=== PATIENT | male | born 1980 | race Caucasian/White ===

== ENCOUNTER 2019-10-29 07:25 | Inpatient (IN) | payer MEDICAID ==
[~2019-10-29] VITALS: Ht 160 cm; Wt 72.6 kg
[2019-10-29] MEDS ORDERED: QUET25TA3 (07:40)
[2019-10-29] MEDS ORDERED: AMOXICILLIN (07:40)
[2019-10-29] MEDS ORDERED: SERT50TA14 (07:40)
[2019-10-29] MEDS ORDERED: ASPI81TA31 PO (07:40)
[2019-10-29] MEDS ORDERED: FURO20TA90 (07:40)
[2019-10-29] MEDS ORDERED: COREG (07:40)
[2019-10-29] MEDS ORDERED: LIPITOR (07:40)
[2019-10-29] MEDS ORDERED: METFORMIN (07:40)
[2019-10-29] MEDS ORDERED: IV NS 1000 ML 1,000 ML IV ONE (07:46)
[2019-10-29] MEDS ORDERED: NEOMY/BACITRA/POLYMYXIN B OINT UD PACKET TP ONE ×2 (07:56→08:00)
[2019-10-29 08:33] LABS: BASOPHILS # (AUTO) 0.1 K/uL (0.0-8.0); BASOPHILS % (AUTO) 1.2 % (0.0-2.0); EOSINOPHILS % (AUTO) 0.5 % (0.0-7.0); HEMATOCRIT 38.3 % (36.7-47.1); LYMPHOCYTES # (AUTO) 1.8 K/uL (20.0-40.0); LYMPHOCYTES % (AUTO) 16.9 % (20.5-51.5); MEAN CORPUSCULAR HEMOGLOBIN 29.5 uug (23.8-33.4); MEAN CORPUSCULAR HGB CONC 34 g/dL (32.5-36.3); MEAN CORPUSCULAR VOLUME 87.2 fL (73.0-96.2); MONOCYTES # (AUTO) 0.8 K/uL (2.0-10.0); MONOCYTES % (AUTO) 7.3 % (0.0-11.0); NEUTROPHILS # (AUTO) 7.8 K/uL (1.8-8.9); NEUTROPHILS % (AUTO) 74.1 % (38.5-71.5); PLATELET COUNT (AUTO) 218 K/uL (152-348); RED BLOOD CELL COUNT(AUTO) 4.39 MIL/uL (4.06-5.63); WHITE BLOOD COUNT (AUTO) 10.5 K/uL (3.6-10.2)
[2019-10-29 08:51] LABS: CREATININE 0.8 mg/dL (0.6-1.3); POTASSIUM 4.2 mmol/L (3.5-5.1)
[2019-10-29] MEDS ORDERED: ASPIRIN 325 MG TABLET ONE (08:55)
[2019-10-29] MEDS ORDERED: ASPIRIN 325 MG TABLET PO ONE (09:00)
[2019-10-29 09:08] LABS: BILIRUBIN,TOTAL 0.5 mg/dL (0.2-1.0); TOTAL PROTEIN, SERUM 6.7 g/dL (6.4-8.2)
[2019-10-29 09:18] LABS: ETHANOL < 3 MG/DL (0-0)
--- NOTE | 2019-10-29 09:31 | NUR ---
Extra warm blankets are on. Urinal@bedside, pending urine specimen.
--- NOTE | 2019-10-29 10:02 | NUR ---
Patient voided on himself and gurney instead of using the urinal. Reoriented patient re: urinal please for urine sample, callbutton use, and reminded patient not to pull on his cables, therapeutic tubings/wires. Bedsheet changed, new gown on.
[2019-10-29] MEDS ORDERED: IOHEXOL 350 100 ML INFUS..BTL ONE (10:09)
[2019-10-29] MEDS ORDERED: IV NORMAL SALINE 250 ML IV ONE (10:09)
[2019-10-29] MEDS ORDERED: SWABABLE VALVE TRANSFER SET EA MC ONE (10:09)
[2019-10-29] MEDS ORDERED: MORPHINE SULFATE 2 MG/1 ML DISP.SYRIN ONE (10:35)
[2019-10-29] MEDS ORDERED: ONDANSETRON 4 MG/2 ML VIAL ONE (10:35)
[2019-10-29] MEDS ORDERED: ENOXAPARIN SODIUM 80 MG/0.8 ML DISP.SYRIN SQ ONE ×2 (10:35→11:00)
[2019-10-29] MEDS ORDERED: MORPHINE SULFATE 2 MG/1 ML DISP.SYRIN IV ONE (11:00)
[2019-10-29] MEDS ORDERED: ONDANSETRON 4 MG/2 ML VIAL IV ONE (11:00)
--- NOTE | 2019-10-29 11:05 | NUR ---
Patient is resting comfortably on gurney with eyes closed, pending callback from [facility] hospitalist.
--- NOTE | 2019-10-29 11:31 | NUR ---
SURY Arita@bedside & evaluating patient in ER bed 3.
--- NOTE | 2019-10-29 12:02 | NUR ---
Patient was unable to move from gurney to wheelchair, c/o severe pains "all-over", loud moaning heard. Patient was assisted back to supine position with 2 person assist. Comfort and safety measures maintained.
[2019-10-29 12:03] LABS: *BILIRUBIN,URIN NEGATIVE (NEGATIVE); *BLOOD, URINE NEGATIVE (NEGATIVE); *CLARITY,URINE SLIGHTLY CLOUDY (CLEAR); *COLOR,URINE YELLOW (YELLOW); *KETONES,URINE TRACE (NEGATIVE); *UROBILINOGEN,URINE 0.2 E.U./dl (NORMAL); LEUKOCYTE ESTERASE ,URINE TRACE (NEGATIVE); NITRITE, URINE NEGATIVE (NEGATIVE); PH,URINE 5.5 (5.0-8.0)
[2019-10-29 12:08] LABS: UGLUCOSE 3+ (NEGATIVE)
[2019-10-29 12:19] LABS: *AMPHETAMINE, URINE NEGATIVE (NEGATIVE); *BARBITURATE, URINE NEGATIVE (NEGATIVE); *CANNABINOID, URINE NEGATIVE (NEGATIVE); *COCCAINE, URINE NEGATIVE (NEGATIVE); *OPIATE, URINE POSITIVE (NEGATIVE); *PHENCYCLIDINE SCREEN,URINE NEGATIVE (NEGATIVE)
--- NOTE | 2019-10-29 12:30 | NUR ---
Received pt. resting in bed. when asked name, , pt. states he does not know. Made 2 attempts pt. did not know answer twice. pt. states he does not know what month it is, who is the president, or simple math equation. pt denies sob/ difficulty breathing; however pt. has non productive cough. Pt. denies pain/ discomfort. IV in R hand 20 gauge intact patent saline lock. safety measures in place. call light within reach. will continue to monitor pt.
[2019-10-29 12:52] VITALS: BP 137/103
[2019-10-29] MEDS ORDERED: ZOLPIDEM 5 MG TABLET PO PRN (13:15)
[2019-10-29] MEDS ORDERED: ONDANSETRON 4 MG/2 ML VIAL IV PRN (13:15)
[2019-10-29] MEDS ORDERED: DEXTROSE 50% 50 ML DISP.SYRIN IV PRN (13:15)
[2019-10-29] MEDS ORDERED: MAGNESIUM HYDROXIDE 30 ML LIQUID UDC PO PRN (13:15)
[2019-10-29] MEDS ORDERED: ACETAMINOPHEN 325 MG TABLET PO PRN (13:15)
--- NOTE | 2019-10-29 14:00 | NUR ---
pt. has bizarre behavior. Pt. pulled out cords from back of bed and put gown in toilet. Pt. wandering around room with weak balance holding on to furniture while standing. Instructed pt. to stay in bed and set bed alarm on. Re oriented pt. to hospital. Spoke to Krysta Arita who will put in psych consult.
[2019-10-29 15:23] VITALS: BP 99/68
--- NOTE | 2019-10-29 15:52 | NUR ---
pt. getting out of bed and pulling of monitor leads. Taped monitor leads to pt chest. Found pt. sitting in bed with legs up and over side rails. Order given for 1:1 sitter for safety.
[2019-10-29] MEDS: BLOOD SUGAR DIAGNOSTIC 1 EACH STRIP VI SCH ×2 (16:30→20:37)
[2019-10-29 17:12] LABS: BACTERIA,URINE FEW /HPF (NONE SEEN); RBC,URINE NONE SEEN /HPF (0-3); SQUAMOUS EPITHELIAL CELL,UR FEW /HPF (NONE SEEN); WBC,URINE 0-3 /HPF (0-3)
[2019-10-29 17:13] LABS: YEAST,URINE BUDDING YEAST /HPF (NONE SEEN)
[2019-10-29] MEDS: IV NS 1000 ML 1,000 ML IV PRN (18:36)
[2019-10-29] MEDS: INSULIN REGULAR, HUMAN 300 UNIT/3 ML VIAL SQ PRN (18:52)
--- NOTE | 2019-10-29 19:30 | NUR ---
Received patient lying in bed. AAOx1 to name. No signs or symptoms of acute distress at this time. Patient is on RA and denies SOB or chest pain. electronic device monitor is on. Left wrist IV patent and infusing ordered fluids. 1:1 Sitter at bedside for safety. Bed low and in locked position. Safety measures in place and will continue to monitor.
[2019-10-29 20:00] VITALS: BP 107/63
[2019-10-29] MEDS: HYDROCODONE/APAP 5-325MG TABLET PO PRN (21:17)
--- NOTE | 2019-10-29 22:00 | NUR ---
Patient began moaning loudly and hitting their chest verbalizing "Just kill me please". Patient stated they hear voices. Notified Krysta Arita DNP and placed one time order for Seroquel 25mg PO. Pt to follow up with psych consult in AM.
[2019-10-29] MEDS ORDERED: QUETIAPINE FUMARATE 25 MG TABLET PO ONE (22:30)
[2019-10-30] VITALS: BP 112/60
--- NOTE | 2019-10-30 00:30 | NUR ---
pt continuously hitting self and was unable to de redirected. Pt became anxious and agitated. HR fluctuated between 130-140 on the playground monitor. Notified Ruth of pt behavior and instructed to place an order for 1mg Ativan PO. Will continue to monitor.
[2019-10-30] MEDS ORDERED: LORAZEPAM 1 MG TABLET PO ONE (00:45)
--- NOTE | 2019-10-30 03:00 | NUR ---
Pt is calm and sleeping in bed. HR WNL. Sitter at bedside. Will continue to monitor.
[2019-10-30 05:00] VITALS: BP 114/81
[2019-10-30] MEDS: BLOOD SUGAR DIAGNOSTIC 1 EACH STRIP VI SCH ×4 (06:35→21:03)
[2019-10-30 06:40] LABS: BASOPHILS % (AUTO) 0.7 % (0.0-2.0); EOSINOPHILS # (AUTO) 0.1 K/uL (0.0-0.7); EOSINOPHILS % (AUTO) 1.9 % (0.0-7.0); HEMATOCRIT 34.6 % (36.7-47.1); HEMOGLOBIN 11.7 g/dL (12.5-16.3); LYMPHOCYTES # (AUTO) 2.1 K/uL (20.0-40.0); LYMPHOCYTES % (AUTO) 33.5 % (20.5-51.5); MEAN CORPUSCULAR HEMOGLOBIN 29.8 uug (23.8-33.4); MEAN CORPUSCULAR HGB CONC 34 g/dL (32.5-36.3); MEAN CORPUSCULAR VOLUME 88.3 fL (73.0-96.2); MONOCYTES # (AUTO) 0.5 K/uL (2.0-10.0); MONOCYTES % (AUTO) 8.5 % (0.0-11.0); NEUTROPHILS # (AUTO) 3.4 K/uL (1.8-8.9); NEUTROPHILS % (AUTO) 55.4 % (38.5-71.5); PLATELET COUNT (AUTO) 208 K/uL (152-348); RED BLOOD CELL COUNT(AUTO) 3.92 MIL/uL (4.06-5.63); WHITE BLOOD COUNT (AUTO) 6.2 K/uL (3.6-10.2)
[2019-10-30 06:55] LABS: CREATININE 0.7 mg/dL (0.6-1.3); MAGNESIUM 1.9 mg/dL (1.8-2.4); PHOSPHOROUS 3.1 mg/dL (2.5-4.9); POTASSIUM 4.1 mmol/L (3.5-5.1)
--- NOTE | 2019-10-30 07:30 | NUR ---
patient in bed, No signs of distress noted. No SOB. sat 97% on Room Air. No complain of Pain or discomfort. On 1:1 sitter for safety. All needs attended. will continue to monitor.
[2019-10-30] MEDS: IV NS 1000 ML 1,000 ML IV PRN ×2 (08:06→21:03)
[2019-10-30] MEDS: ENOXAPARIN SODIUM 40 MG/0.4 ML DISP.SYRIN SQ SCH (08:14)
[2019-10-30 08:28] VITALS: BP 128/93
[2019-10-30] MEDS: INSULIN REGULAR, HUMAN 300 UNIT/3 ML VIAL SQ PRN ×3 (11:35→21:05)
[2019-10-30 13:12] LABS: LACTATE DEHYDROGENASE 354 U/L (85-227)
--- NOTE | 2019-10-30 13:14 | NUR ---
Training Executive consultation received. SW to follow-up with patient.
[2019-10-30 14:06] LABS: FERRITIN 556 ng/mL (26-388)
--- NOTE | 2019-10-30 14:41 | NUR ---
Technical Manager Consultation 2:30pm: Due to patient being COVID positive, SW completed patient's assessment via ZOOM. Patient is a 38 year old male. Per patient's medical records, patient was found on the street on 10/28 and brought into the ED by paramedics. Per medical records, patient was at [facility] and was transported via [facility] to [facility] where COVID positive homeless patients were being housed. Per medical records, the [employer] wheat combine driver dropped patient off at the hot, however patient did not go inside and was later found wandering on the street. Patient is sitting up in bed, appearance is fair. Patient maintained appropriate eye contact with this SW. Patient is alert, however is oriented x 2-3. Behavior during interview was appropriate. Patient presents with some confusion, as he states he is in a hospital in [place] for his heart. Patient is oriented to name and year. Patient denies being found on the street near a hotel. 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 Patient denies drug or alcohol use, although per medical records, patient tested positive for cocaine on 10/24 at [facility]. Patient states he smokes 1-2 cigarettes, although could not state the frequency. Patient denies mental illness, and denies hallucinations, but per nursing report and per medical records, patient has been demonstrating bizarre behavior, and has been seen talking to himself. Per patient's record, patient has a sitter due to this bizarre behavior. Per patient, upon discharge he plans to return home to his sister's house, [place] [phone]. Patient provided verbal consent to contact his sister. SW to follow-up with providing patient applicable resources. SW to work with case management to ensure a safe and proper discharge.
--- NOTE | 2019-10-30 17:31 | NUR ---
Received a call from lab, covid19 PCR resulted Positive, Dr. funes made aware.
--- NOTE | 2019-10-30 18:03 | NUR ---
Patient in bed, awake and verbally responsive. No signs of distress noted. On Room Air, sat 98%. No complain of Pain or discomfort. Afebrile. Observed proper PPE for covid +, kept clean and comfortable. Will endorse to Oncoming Nurse.
--- NOTE | 2019-10-30 19:35 | NUR ---
Received patient sitting in bed. AAOx2. No signs or symptoms of acute distress noted at this time. Pt is on RA and denies SOB. Pt C/o abdominal pain, will follow up with pain medication as ordered. Covid+ isolation in place. Left forearm IV patent and intact. Safety measure in place and will continue to monitor.
[2019-10-30 20:20] VITALS: BP 115/81
[2019-10-30] MEDS: HYDROCODONE/APAP 5-325MG TABLET PO PRN (21:05)
--- NOTE | 2019-10-30 22:50 | NUR ---
Pt is agitated pacing around the room, rapidly hitting chest and legs, hitting bedside table into the wall. Pt failed to be redirected after multiple attempts. Will administer PRN Ativan and continue to monitor.
[2019-10-30] MEDS: LORAZEPAM 1 MG TABLET PO PRN (22:52)
--- NOTE | 2019-10-30 23:50 | NUR ---
Pt is calm and lying in bed. Compliant with nursing staff. HR WNL on ekg monitor. Sleeping intermittently. Will continue to monitor.
[2019-10-31 04:21] VITALS: BP 109/70
[2019-10-31] MEDS: BLOOD SUGAR DIAGNOSTIC 1 EACH STRIP VI SCH ×4 (06:33→20:50)
[2019-10-31] MEDS: LORAZEPAM 1 MG TABLET PO PRN ×3 (06:33→20:53)
[2019-10-31 08:00] VITALS: BP 106/72
--- NOTE | 2019-10-31 08:00 | NUR ---
Pt in bed awake AOx2, denied suicidal ideation at this time, stated feeling better. On Ra with no SOB or distress noted at this time. On tele ST, denied chest pain. IV on left FA 20g running NS @ 75cc. Bed locked in lowest position with siderails 2x up. Call light and phone within reach
[2019-10-31] MEDS: ENOXAPARIN SODIUM 40 MG/0.4 ML DISP.SYRIN SQ SCH (09:05)
--- NOTE | 2019-10-31 10:49 | NUR ---
[facility] called for psych consult. facesheet faxed
[2019-10-31 11:10] VITALS: BP 109/76
--- NOTE | 2019-10-31 11:20 | NUR ---
Stated feeling a little anxious, Ativan PRN as prescribed given
[2019-10-31] MEDS: IV NS 1000 ML 1,000 ML IV PRN (11:21)
[2019-10-31] MEDS: INSULIN REGULAR, HUMAN 300 UNIT/3 ML VIAL SQ PRN ×3 (11:43→20:52)
--- NOTE | 2019-10-31 14:18 | NUR ---
BANDAR prepared the homeless resource packet for the patient, which included the following resources: a list of year round shelters [facility] [address], ; [facility] [address], ; and [facility] [address], [phone], along with resources for places to go for food, showers, substance abuse treatment, mental health services, community medical clinics, and pharmacies. These include the following: the [facility] homeless directory which provides a list of places that individuals can go to throughout the week for hot meals, sack lunches, food pantries, and showers; a list of mental health clinics: [facility] [address] [place] [address], ; [facility] [address] [place] [address], ; [facility] [address] [place] [address], ; a list of medical clinics: [facility] [address], [place]. [place], ; [facility] [address], [address] [address]; [facility] [address] [place] [address], ; and a list of substance abuse programs: [facility]stance [facility] Self-helpline ; [facility] ; [facility] ; [facility] ; [facility] ; [facility] [phone]; [facility] [phone]; locations of pharmacies. BANDAR met with patient's nurse Sebastian, and informed her that the resource packet and homeless patient waiver form are prepared in filed in patient's chart. BANDAR informed Sebastian that nursing should provide these resources to the patient upon discharge, along with asking the patient to sign the homeless patient waiver form. Sebastian expressed understanding and agreement.
[2019-10-31 15:08] VITALS: BP 106/71
--- NOTE | 2019-10-31 19:15 | NUR ---
Pt is awake, resting in bed comfortably. Pt denies any acute distress. Denies any hallucination. Pt is cooperative. V/S stable on room air. Sinus Tachy, 101 on tele monitor. LFA IV is intact with NS running at 75cc. Safety measures in place. Call light within reach. Will continue with the plan of care.
[2019-10-31 20:05] VITALS: BP 118/84
[2019-11-01 00:48] VITALS: BP 114/78
[2019-11-01] MEDS: IV NS 1000 ML 1,000 ML IV PRN (01:04)
[2019-11-01 05:03] VITALS: BP 114/77
[2019-11-01 06:43] LABS: BASOPHILS % (AUTO) 0.8 % (0.0-2.0); EOSINOPHILS # (AUTO) 0.1 K/uL (0.0-0.7); EOSINOPHILS % (AUTO) 1.2 % (0.0-7.0); HEMATOCRIT 33.7 % (36.7-47.1); HEMOGLOBIN 11.6 g/dL (12.5-16.3); LYMPHOCYTES # (AUTO) 1.9 K/uL (20.0-40.0); LYMPHOCYTES % (AUTO) 42.4 % (20.5-51.5); MEAN CORPUSCULAR HEMOGLOBIN 30.3 uug (23.8-33.4); MEAN CORPUSCULAR HGB CONC 34 g/dL (32.5-36.3); MEAN CORPUSCULAR VOLUME 87.8 fL (73.0-96.2); MONOCYTES # (AUTO) 0.5 K/uL (2.0-10.0); MONOCYTES % (AUTO) 10.6 % (0.0-11.0); NEUTROPHILS # (AUTO) 2.1 K/uL (1.8-8.9); PLATELET COUNT (AUTO) 266 K/uL (152-348); RED BLOOD CELL COUNT(AUTO) 3.84 MIL/uL (4.06-5.63); WHITE BLOOD COUNT (AUTO) 4.6 K/uL (3.6-10.2)
[2019-11-01] MEDS: BLOOD SUGAR DIAGNOSTIC 1 EACH STRIP VI SCH ×4 (06:50→21:15)
[2019-11-01 06:56] LABS: CARBON DIOXIDE 30 mmol/L (21-32); CHLORIDE 104 mmol/L (98-107); CREATININE 0.6 mg/dL (0.6-1.3); GLUCOSE 154 mg/dL (74-106); MAGNESIUM 1.9 mg/dL (1.8-2.4); PHOSPHOROUS 2.3 mg/dL (2.5-4.9); UREA NITROGEN, BLOOD 6 mg/dL (7-18)
--- NOTE | 2019-11-01 07:11 | NUR ---
Pt slept intermittently through the night. Pt is awake and denies any SOB/CP. Pt was cooperative, denies any hallucination or suicidal ideation. NSR 85 on tele monitor. V/S stable on room air. Afebrile. Comfort care and needs attended. Safety measures in place. Call light within reach. Will endorse to the oncoming nurse accordingly.
--- NOTE | 2019-11-01 07:30 | NUR ---
Received patient sitting in bed. AAOx2. No signs or symptoms of acute distress noted at this time. Pt is on RA and denies SOB. Pt C/o abdominal pain,. Covid+ isolation in place. . Safety measure in place and will continue to monitor.
[2019-11-01] MEDS: LORAZEPAM 1 MG TABLET PO PRN ×2 (08:01→18:55)
[2019-11-01] MEDS: ENOXAPARIN SODIUM 40 MG/0.4 ML DISP.SYRIN SQ SCH (08:01)
[2019-11-01] MEDS: INSULIN REGULAR, HUMAN 300 UNIT/3 ML VIAL SQ PRN ×4 (08:05→21:18)
[2019-11-01 09:50] VITALS: BP 123/84
[2019-11-01] MEDS: ASPIRIN EC 81 MG TABLET.DR PO SCH (11:42)
[2019-11-01] MEDS: CARVEDILOL 3.125 MG TABLET PO SCH ×2 (11:43→17:00)
[2019-11-01 16:17] VITALS: BP 109/73
[2019-11-01] MEDS ORDERED: NEUTRA PHOS PACKET PO ONE (17:15)
--- NOTE | 2019-11-01 18:29 | NUR ---
pt Pull out the window blinds charge nurse notified ,removed the blinds and chair and iv pump from the room .
--- NOTE | 2019-11-01 18:59 | NUR ---
pt is refusing to wear the tele monitor md and charge nurse made aware
--- NOTE | 2019-11-01 19:30 | NUR ---
Pt is awake, Standing looking out the window. Pt denies any acute distress. Denies any hallucination. Pt is cooperative. No IV access present. COVID isolation in place. Safety measures in place, call light within reach, will continue to monitor.
--- NOTE | 2019-11-01 19:30 | NUR ---
Pt acting strange in their room, requesting to have oxygen inhalation turned on through they do not have any necessity for O2 therapy. Able to breath on RA without any problems. All items that are considered safety hazards were removed from the room. 1:[address] as ordered. Will continue to monitor and evaluate patient's behavior.
[2019-11-01 19:57] VITALS: BP 105/68
--- NOTE | 2019-11-01 20:00 | NUR ---
Dr. Muñoz phoned in, spoke with charge nurse and ascertained pt's condition. Made aware of pt being disorganized and that crisis team saw him
[2019-11-01] MEDS ORDERED: ATORVASTATIN 20 MG TABLET PO SCH (21:00)
[2019-11-02] MEDS: LORAZEPAM 1 MG TABLET PO PRN ×2 (00:26→06:40)
[2019-11-02 04:58] VITALS: BP 115/77
[2019-11-02] MEDS: BLOOD SUGAR DIAGNOSTIC 1 EACH STRIP VI SCH ×3 (06:40→16:30)
[2019-11-02 08:00] VITALS: BP 116/80
--- NOTE | 2019-11-02 08:20 | NUR ---
Dr Ferguson (psych) spoke with pt via zoom phone call. No hold needed for pt at this time.
[2019-11-02] MEDS ORDERED: QUETIAPINE FUMARATE 25 MG TABLET PO PRN (08:45)
[2019-11-02] MEDS: ASPIRIN EC 81 MG TABLET.DR PO SCH (09:26)
[2019-11-02] MEDS: ENOXAPARIN SODIUM 40 MG/0.4 ML DISP.SYRIN SQ SCH (09:29)
[2019-11-02] MEDS: CARVEDILOL 3.125 MG TABLET PO SCH (09:33)
[2019-11-02] MEDS: INSULIN REGULAR, HUMAN 300 UNIT/3 ML VIAL SQ PRN (11:54)
[2019-11-02] MEDS ORDERED: CARV3.122 PO (12:45)
[2019-11-02] MEDS ORDERED: QUET25TA PO (12:45)
[2019-11-02] MEDS ORDERED: ASPI-618 PO (12:45)
[2019-11-02] MEDS ORDERED: ATOR20TA PO (12:45)
[2019-11-02 15:16] VITALS: BP 111/82
--- NOTE | 2019-11-02 15:51 | NUR ---
[facility]. Full report given. Addendum: 11/02/19 at 1639 by ISAEL TORRES RN Full report also given to Rosey . Addendum: 11/02/19 at 1639 by ISAEL TORRES RN [facility] .
--- NOTE | 2019-11-02 16:50 | NUR ---
Full SBAR report given to ambulance. Discharge instructions provided and discussed with the pt. Meds reconciled by MD and reviewed with the pt. Pt verbalized understanding of discharge instructions and medications. All belongings reviewed and brought with the pt. Pt stable and nad noted upon discharge.
== END 2019-11-02 16:50 | disposition home or self-care (01) | DRG 816 ==
LOC: ER 07:25 → TELE3 11:33 → MEDSURG3 11-01 19:16
PROVIDERS: ADMIT Nurse Practitioner Acute Care; ATTEND Nurse Practitioner Acute Care
DX: T40.5X1A Poisoning by cocaine, accidental (unintentional), initial encounter (principal); U07.1 COVID-19; N17.0 Acute kidney failure with tubular necrosis; I21.A1 Myocardial infarction type 2; G92 Toxic encephalopathy; E11.65 Type 2 diabetes mellitus with hyperglycemia; E87.1 Hypo-osmolality and hyponatremia; F39 Unspecified mood [affective] disorder; F41.9 Anxiety disorder, unspecified; I10 Essential (primary) hypertension; Z59.0 Homelessness; Y92.89 Other specified places as the place of occurrence of the external cause; I42.9 Cardiomyopathy, unspecified; F20.9 Schizophrenia, unspecified; F14.188 Cocaine abuse with other cocaine-induced disorder; I51.4 Myocarditis, unspecified; F29 Unspecified psychosis not due to a substance or known physiological condition; R40.2363 Coma scale, best motor response, obeys commands, at hospital admission; R40.2143 Coma scale, eyes open, spontaneous, at hospital admission; R40.2243 Coma scale, best verbal response, confused conversation, at hospital admission; Z79.84 Long term (current) use of oral hypoglycemic drugs
CPT/HCPCS: 36415; 70030-TC; 70450; 71045; 71275; 80307; 83605; 83615; 83735; 84100; 84443; 85025; 85730; 86140; 87040; 87070; 87086; 93005; A4663; G0378; G0480; J1650; J1815; J2270; J2405; J7030; J7050; Q9967; U0003-CS